=== PATIENT | male | born 1985 | race African-American/Black ===

== ENCOUNTER 2017-12-11 15:44 | Emergency (ER) | payer MEDICAID, SELFPAY ==
[2017-12-11 15:46] VITALS: BP 137/87; PULSE 75; RESP 18; TEMP 37.2; O2SAT 99; BMI 24.1
--- NOTE | 2017-12-11 15:57 | ED.VISSUMM ---
- ER Visit Summary Date of Service: 12/11/17 Chief Complaint: Nausea, vomiting History of Present Illness: The patient is a 32 M who is otherwise healthy presents to the emergency department nausea for the past 36 hours. He states that he has multiple sick contacts at home with similar symptoms. He states he would get some abdominal cramping almost feels as if he is hungry. He states that he will try and eat minimal vomit. He still able to drink fluids. He has had some cramping across his low back. He denies dysuria. Patient has had prior hernia surgery, but states he is moving his bowels without issue. He denies any fevers or chills. He has no history of Crohn's disease or ulcerative colitis. Physical Examination: Vital signs reviewed General: Well-nourished, well-developed Head: Normocephalic, atraumatic Eyes: Pupils equal and reactive, extraocular muscles intact Neck, supple, no lymphadenopathy Heart: Regular rate and rhythm Respiratory: No distress, clear bilaterally Abdomen: Soft, mildly tender in the midepigastric area without rebound or guarding, no hernia, nondistended, no peritoneal signs Back: Nontender Extremities: Nontender, no edema, no cords Skin: Normal color no rash Neuro: Alert and oriented, no focal or lateralizing deficits Test Results: [] Emergency Department Course and Treatment: The patient symptoms do seem consistent with gastritis. He did have one episode of loose diarrhea today. He has no significant focal tenderness. I am not concerned for obstruction. The patient is very forward that the only thing he wants some help the nausea single back to work. His vitals are normal. His exam is reassuring. He is given oral Zofran will be kept on this as an outpatient. I did spend time counseling him concerning symptoms and reasons to return. The patient be discharged home. Treatment Plan: [] Disposition: Discharge Impression: Nausea and vomiting This note was generated with [employer] dictation software. It may contain incorrect words, spelling, and punctuation that were not noted in review of the chart prior to signing ED Disposition - Plan for ED Patient: Chief Complaint: Nausea/Vomiting Instructions: ED Nausea Vomiting Prescriptions: Ondansetron [Zofran Odt] 4 mg PO Q8H PRN PRN #10 tab PRN Reason: Nausea Referrals: NOT,DEFINED [Primary Care Provider] -
[2017-12-11] MEDS: Ondansetron ODT 4 MG Tablet PO (16:23)
== END 2017-12-11 16:28 | disposition home or self-care (01) ==
LOC: ED 16:09
PROVIDERS: Emergency Provider Emergency Medicine
DX: R11.2 Nausea with vomiting, unspecified (principal)
CPT/HCPCS: 99283

== ENCOUNTER 2018-01-14 16:46 | Emergency (ER) | payer MEDICAID, SELFPAY ==
[2018-01-14 16:47] VITALS: BP 127/86; PULSE 80; RESP 16; TEMP 36.8; O2SAT 100; BMI 24.0
[2018-01-14 16:58] VITALS: O2SAT 97
--- NOTE | 2018-01-14 17:04 | ED.DCSUM_ITS ---
- ER Visit Summary Date of Service: 01/14/18 Chief Complaint: Cough History of Present Illness: The patient is a 32 M past medical history of hypoglycemia and psychiatric disorder. Patient states that he walks to work has been caught in the weather the last day or so it was cold and raining. 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 He states he now has a cough and mild shortness of breath. Denies any fever. No hemoptysis. Yellowish phlegm. Physical Examination: Well-appearing male. Vital signs are stable. He is afebrile. He does not look septic or toxic. He is in no distress. His pulse ox 90% on room air no signs of hypoxia. H EENT exam TMs normal bilaterally. Posterior pharynx moist and pink. No erythema or exudate. No trouble breathing or swallowing. No drooling. No exudate. No stridor. Neck nontender. No lymphadenopathy. Lungs dry cough. No rales, rhonchi or wheezing. Heart regular rhythm no murmur. Abdomen soft and nontender. Normal bowel sounds. No peritoneal signs. Patient moving all 4 extremities. They are neurovascularly intact. Nontender. No edema or cords. Neurologically is awake and alert with no focal motor deficits. Back exam is unremarkable. Test Results: None Emergency Department Course and Treatment: History and exam are consistent with a viral URI. Treatment Plan: Fluids and rest. Tylenol Motrin as needed. I explained the patient that antibiotics would be of no benefit. Disposition: Discharge Impression: Acute viral URI This note was generated with [employer] dictation software. It may contain incorrect words, spelling, and punctuation that were not noted in review of the chart prior to signing ED Disposition - Plan for ED Patient: Chief Complaint: Shortness of Breath Referrals: Care Physician,No Primary [Primary Care Provider] -
--- NOTE | 2018-01-14 17:04 | ED.DEP ---
ED Disposition - Plan for ED Patient: Disposition: Home or Assisted Living Chief Complaint: Shortness of Breath Instructions: ED URI Viral Referrals: Oleg Vasques MD [STAFF PHYSICIAN] - As Needed Additional Instructions: Plenty of fluids and rest. Tylenol and/or Motrin as needed for body aches. Follow-up if not improving or return if worse.
[2018-01-14 17:15] VITALS: BP 124/81; PULSE 70; RESP 18; O2SAT 98
--- NOTE | 2018-01-14 17:15 | EKG12_ITS ---
Test Reason : CP Blood Pressure : / mmHG Vent. Rate : 076 BPM Atrial Rate : 076 BPM P-R Int : 160 ms QRS Dur : 094 ms QT Int : 366 ms P-R-T Axes : 067 071 049 degrees QTc Int : 411 ms Normal sinus rhythm with sinus arrhythmia Septal ME, age undermined, cannot be excluded Confirmed by AKIRA HOOVER, SHANELLE ([id number]), science editor DOT HENSON ([id number]) on 01/16/2018 11:24:27 AM Referred By: PATRICE/KYLEIGH Confirmed By:SHANELLE CHAMPION MD
--- NOTE | 2018-01-14 17:16 | ED.RN ---
REVIEWED D/C INSTRUCTIONS, FOLLOW UP CARE, AND S/S THAT WOULD WARRANT A RETURN TO THE ED WITH PT. PT VERBALIZED AN UNDERSTANDING AND DENIES FURTHER QUESTIONS FOR THIS RN. PT SKIN WARM AND DRY, RESP EVEN AND UNLABORED, PT A&O X X3, NO DISTRESS NOTED. PT AMBULATED OUT OF ED, GAIT STEADY.
--- NOTE | 2018-01-15 12:10 | CM.ED ---
ED CALLBACK: Follow-up call placed to patient. Unable to hear patient when he answered due to poor connection. Upon calling back I received voicemail. Message left with return contact information should patient have any questions or needed assistance.
== END 2018-01-14 17:27 | disposition home or self-care (01) ==
LOC: ED 17:18
PROVIDERS: Emergency Provider Emergency Medicine
DX: J06.9 Acute upper respiratory infection, unspecified (principal); R06.02 Shortness of breath; Z72.0 Tobacco use
CPT/HCPCS: 93005; 99282; A4216

== ENCOUNTER 2018-04-05 14:32 | Emergency (ER) | payer MEDICAID, SELFPAY ==
[2018-04-05 14:32] VITALS: BP 119/88; PULSE 67; RESP 17; TEMP 36.7; O2SAT 100; BMI 23.1
--- NOTE | 2018-04-05 15:04 | ED.VISSUMM ---
- ER Visit Summary Date of Service: 04/05/18 Chief Complaint: Patient presents with bilateral low back pain that radiates into his buttocks when he hyperextends. He History of Present Illness: The patient is a 32 M who presents with bilateral low back pain that has been present for greater than a month. He states she has had problem for some time. 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 He denies paresthesia or anesthesia. He denies bowel or bladder dysfunction. He denies radicular pain. He states when he hyperextends his feet become numb. He denies foot drop. He denies weakness in his thigh muscles going up or down steps. He prefers to sit over standing. He does report sweats when the pain is severe and states since he has been working more he had a 2 pound weight loss over the past month. Patient denies ocular, visual auditory symptoms. He states the pain now radiates up to the back of his had any has a migraine. He has no history of migraines. He denies cardiac respiratory or GI symptoms. He denies urologic symptoms. Please read written note for complete detail Physical Examination: Vital signs noted. HEENT exam is unremarkable. Neck is supple. Patient initially set up and put his hands behind his head and flexed at the neck with no discomfort. When the nurse arrived in the room when he had to adjust himself in the bed he made grimacing facial expressions that he was in severe pain. Heart is regular without murmur, gallop or rub. S1 and S2 are normal. Lungs are clear to auscultation with good movement of air bilaterally. Abdomen is soft nontender bowel sounds are present normal. Patient has pain to palpation light touch right and left paralumbar region. Straight leg test is negative bilateral. He had pain to 15 degrees on the right without radiation and pain at 5 degrees on the left. Patella and ankle reflex are 2+. EHL is intact. There is no clonus or Babinski sign. There is no weakness of major muscle groups in his lower extremity. Is normal perianal sensation. Test Results: None Emergency Department Course and Treatment: Patient states he does not have a physician in this area. Demographics indicate he is from [place]. Treatment Plan: Oral pain medicine and prescription for Naprosyn Disposition: Disposition is discharged home with outpatient follow-up with Dr. Latanya Rodriguez since he has no physician Impression: Bilateral low back pain without sciatica This note was generated with [employer] dictation software. It may contain incorrect words, spelling, and punctuation that were not noted in review of the chart prior to signing ED Disposition - Plan for ED Patient: Disposition: Home or Assisted Living Chief Complaint: Back Instructions: ED Neck Back Pain General Prescriptions: Naproxen [Naprosyn] 500 mg PO BID #14 tablet Referrals: Care Physician,No Primary [Primary Care Provider] - Latanya Rodriguez DO [STAFF PHYSICIAN] - 3-5 Days if not improving Additional Instructions: Your prescription [facility] to [facility] your designated pharmacy of choice.
[2018-04-05] MEDS: HYDROcodone Bitartrate/Apap 5/325 Tablet PO (15:31)
[2018-04-05] MEDS: Naproxen 250 MG Tablet 500 MG PO (15:31)
== END 2018-04-05 15:39 | disposition home or self-care (01) ==
LOC: ED 15:17
PROVIDERS: Emergency Provider Emergency Medicine
DX: M54.5 Low back pain (principal)
CPT/HCPCS: 99283

== ENCOUNTER 2018-08-06 10:42 | Emergency (ER) | payer SELFPAY ==
[2018-08-06 10:43] VITALS: BP 137/77; PULSE 72; RESP 16; TEMP 36; O2SAT 98; BMI 22.6
--- NOTE | 2018-08-06 11:01 | RAD_ITS ---
STUDY: X-RAY - LUMBAR SPINE REASON FOR EXAM: Male, 33 years old. TECHNIQUE: view(s) of the lumbar spine were obtained. COMPARISON: None FINDINGS: There is straightening of the normal lumbar lordosis. There is no substantial scoliosis. There is a normal alignment of the vertebrae. Normal vertebral bodies and endplates. Normal disc space heights. The soft tissue structures are unremarkable. RAD/Lumbar Spine 2 or 3 Views IMPRESSION: Straightening of the normal lumbar lordosis. Electronically Signed: Luther Moser, at 12:22 EDT , Service support ,
[2018-08-06] MEDS: Ketorolac 15 MG/ML Vial IV (11:17)
--- NOTE | 2018-08-06 11:28 | ED.VIS.BACK ---
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 He presents with right lower back pain and right buttocks pain. He denies bowel bladder dysfunction. He denies saddle paresthesia anesthesia. He denies foot drop. He denies weakness in his thigh muscles going up or down steps. He does have a preference for of sitting versus standing. There is no history of trauma. He denies fever, chills night sweats. He denies weight loss or weight gain. He is not immune suppressed. The pain is not central back. Prior similar symptoms: Yes Recent Illness/Hospitalization: No - Past Medical History (1) Chronic back pain greater than 3 months duration Status: Chronic Past Medical History - Allergies and Home Meds Allergies/Adverse Reactions: Allergies amoxicillin Allergy (Verified 08/06/18 10:45) Swelling Primary Care Physician: Care Physician,No Primary [Primary Care Provider] - Prior records reviewed: No Surgical History: no surgical history Lives: Spouse/ Significant Other Smoking Status: Current every day smoker Alcohol: Rare Drugs: None Review of Systems General: Denies: Chills, Fever, Sweats Eyes: Denies: Visual changes - bilaterally, Diplopia ENT: Denies: Rhinorrhea, Sore throat Cardiovascular: Denies: Chest pain, Palpitations Respiratory: Denies: Dyspnea, Cough, Dyspnea on exertion Gastrointestinal: Denies: Abdominal pain, Nausea, Vomiting, Diarrhea, Melena, Hematochezia Genitourinary: Denies: Dysuria, Hematuria, Frequency Musculoskeletal: Reports: Back pain. Denies: Myalgias, Arthralgias, Neck pain, Swelling, Extremity Pain, -, - Skin: Denies: Rash, Wounds Neurological: Denies: Headache, Weakness, Numbness Hematologic: Denies: Easy bruising, Easy bleeding Allergy: Denies: Uticaria, Swelling of the mouth, Swelling of the tongue Physical Exam Vital Signs/Narrative: Vital Signs Temp Pulse Resp BP Pulse Ox 08/06/18 10:43 96.8 F L 72 16 137/77 H 98 Inital Vital Signs reviewed: Yes General: Well nourished, Well developed Head: Normocephalic, Atraumatic Eyes: Perrl, EOMI. Negative for: Pale conjunctiva, Scleral icterus ENT: Moist mucous membranes, No rhinorrhea Neck: Supple, No lymphadenopathy, No JVD Cardiovascular: Regular rate, Regular rhythm, No murmurs, Normal S1, Normal S2 Respiratory: No distress, CTA bilaterally Rectal: - - Normal perianal sensation Back: Normal Inspection, Paraspinal Tenderness, Negative SLR - Right, Negative SLR - Left. Negative for: Nontender, Surgical Scar, Well-Healed, Spinal tenderness, Positive SLR - Right, Positive SLR - Left Extremeties: Nontender, No edema, - - PM PT pulse are palpable and symmetric. There is no stigmata of peripheral arterial disease. Skin: Normal color, No rash. Negative for: Cyanosis, Jaundice, Rash Neuro: Alert, Oriented, Normal Strength, Normal Sensation, Normal DTR, Normal Gait, Normal Reflexes - Patella and ankle reflex are 1+ and symmetric., Normal Cerebellar, - - Gait observed with no foot drop. Able to walk on heels and toes. Able to do one leg squat right and left side. Reflexes: Right Patellar, Right Achilles, Left Patellar, Left Achilles. Negative for: Right Clonus, Right Babinski, Left Clonus, Left Babinski Psychological: Depressed Diagnostic/Tx/Re-eval X-Ray: LS SPine, Read by ED Physician, Normal Bony Alignment, Compression - Involving L1 that appears old. Otherwise no evidence of DJD, spurring, osteophytes, spondylolisthesis or disc space narrowing. - Medical Decision Making With history of chronic back pain will obtain x-ray to determine if there is evidence of arthritis spondyloptosis spondylolisthesis that may explain his chronic pain. Since there is no point tenderness and he has no red flags blood work was not obtained and based on history and physical MRI is not indicated. He was medicated with 15 mg of Toradol IV push. Patient has evidence of old L1 compression fraction approximately 510%. Will place on short course of opiate analgesia and follow-up with PCP and possible physical therapy. ED Disposition - Plan for ED Patient: Disposition: Home or Assisted Living Diagnosis: Nontraumatic compression fracture of L1 vertebra Instructions: ED Fx Comp Vertebral Prescriptions: Hydrocodone Bitart/Apap 5-325 [[place] 5MG-325MG] 1 tablet PO Q6H PRN PRN 3 Days #10 tablet PRN Reason: Pain Referrals: Marty Ma MD [STAFF PHYSICIAN] - Additional Instructions: Your prescription was electronically transmitted to [facility] on [address]. Since she denied a physician you were referred to Dr. Marty Ma.
[2018-08-06] MEDS: HYDROcodone Bitartrate/Apap 5/325 Tablet PO (12:05)
[2018-08-06 12:08] VITALS: PULSE 86; RESP 15; O2SAT 99
== END 2018-08-06 12:09 | disposition home or self-care (01) ==
PROVIDERS: Emergency Provider Emergency Medicine
DX: M48.56XA Collapsed vertebra, not elsewhere classified, lumbar region, initial encounter for fracture (principal); F17.200 Nicotine dependence, unspecified, uncomplicated
CPT/HCPCS: 72100; 96374; 99284; A4216

== ENCOUNTER 2018-12-20 13:42 | Emergency (ER) | payer SELFPAY ==
[2018-12-20 13:43] VITALS: BP 153/72; PULSE 91; RESP 18; TEMP 36.9; O2SAT 99; BMI 24.3
--- NOTE | 2018-12-20 14:02 | ED.VISSUMM ---
- ER Visit Summary Date of Service: 12/20/18 Chief Complaint: Pain History of Present Illness: The patient is a 33 M with left-sided dental pain for days. Patient is concerned he has an infection. He has a fractured tooth in the area. Denies any other associated symptoms or complaints. Physical Examination: Afebrile and vital signs unremarkable except for hypertension. Patient is holding his left face. No other pertinent findings on inspection. His HEENT exam shows a fractured left mandibular molar secondary to underlying decay. No sign of abscess. No trismus. No tongue elevation. Neck is unremarkable. Skin is normal. Test Results: None indicated Emergency Department Course and Treatment: Patient will be treated with naproxen and clindamycin. He was given 2 [place] here. We will not prescribe opioids for this. He should follow-up with dental for further care. Treatment Plan: As above Disposition: Discharged Impression: 1. Dental pain This note was generated with [employer] dictation software. It may contain incorrect words, spelling, and punctuation that were not noted in review of the chart prior to signing ED Disposition - Plan for ED Patient: Referrals: Care Physician,No Primary [Primary Care Provider] -
--- NOTE | 2018-12-20 14:03 | ED.DEP ---
ED Disposition - Plan for ED Patient: Instructions: Dental Pain Prescriptions: Clindamycin HCl [Cleocin] 300 mg PO Q6H #40 cap Prescription Printed Naproxen [Naprosyn] 500 mg PO BID #20 tab Prescription Printed
[2018-12-20] MEDS: Naproxen 500 MG Tablet PO (14:12)
[2018-12-20] MEDS: Clindamycin HCl 150 MG Capsule 450 MG PO (14:12)
[2018-12-20] MEDS: HYDROcodone Bitartrate/Apap 5/325 Tablet PO (14:12)
[2018-12-20 14:14] VITALS: RESP 18
== END 2018-12-20 14:15 | disposition home or self-care (01) ==
LOC: ED 14:01
PROVIDERS: Emergency Provider Emergency Medicine
DX: K08.89 Other specified disorders of teeth and supporting structures (principal); Z72.0 Tobacco use
CPT/HCPCS: 99283

== ENCOUNTER 2018-12-25 13:56 | Emergency (ER) | payer OTHER, SELFPAY ==
[2018-12-25 13:56] VITALS: BP 145/87; PULSE 88; RESP 16; TEMP 36.7; O2SAT 99; BMI 24.3
--- NOTE | 2018-12-25 14:42 | ED.DCSUM_ITS ---
- ER Visit Summary Date of Service: 12/25/18 Chief Complaint: Left thumb/hand laceration History of Present Illness: The patient is a 33 M who was cutting boxes when he cut his left hand. He cut over the thenar eminence. He believes a piece of muscle was hanging out of the wound. Denies any numbness or tingling to his thumb. His tetanus is up-to-date. Denies any other symptoms Physical Examination: Vital signs reviewed. Left hand exam reveals a 3.5 cm horizontal laceration on the left thenar eminence. He has good flexion of his thumb as well as extension. He can also counter post his thumb and touch his pinky finger. Test Results: None performed Emergency Department Course and Treatment: The patient has good range of motion of his thumb. I did a repair of the laceration with 8 sutures. He still had g ood full range of motion of the thumb and hand after laceration repair. He will have the sutures out in 7 to 10 days. Worker's Compensation forms will be filled out. Treatment Plan: [] Disposition: Discharge Impression: Left hand laceration, 3.5 cm Laceration repair This note was generated with [employer] dictation software. It may contain incorrect words, spelling, and punctuation that were not noted in review of the chart prior to signing ED Disposition - Plan for ED Patient: Referrals: Care Physician,No Primary [Primary Care Provider] -
--- NOTE | 2018-12-25 14:44 | ED.DEP ---
ED Disposition - Plan for ED Patient: Disposition: Home or Assisted Living Instructions: LACERATION, All Referrals: Care Physician,No Primary [Primary Care Provider] -
[2018-12-25] MEDS: Naproxen 500 MG Tablet PO (15:13)
== END 2018-12-25 15:14 | disposition home or self-care (01) ==
PROVIDERS: Emergency Provider Emergency Medicine
DX: S61.412A Laceration without foreign body of left hand, initial encounter (principal); Z72.0 Tobacco use; W26.0XXA Contact with knife, initial encounter; Y93.89 Activity, other specified; Y92.89 Other specified places as the place of occurrence of the external cause; Y99.0 Civilian activity done for income or pay
CPT/HCPCS: 12002; 99285

== ENCOUNTER 2019-02-05 10:10 | Emergency (ER) | payer OTHER, SELFPAY ==
[2019-02-05 10:11] VITALS: BP 115/75; PULSE 70; RESP 16; TEMP 36.7; O2SAT 99; BMI 23.7
--- NOTE | 2019-02-05 10:31 | ED.VISSUMM ---
- ER Visit Summary Date of Service: 02/05/19 Chief Complaint: Infection History of Present Illness: The patient is a 33 M who is worried about a staph infection to his left hand. His hand was caught at work with a box toe flanger stitchdowns earlier this month. It was sutured. He presents with pain and swelling to the laceration site. No drainage or bleeding. No redness or warmth. No fevers or systemic symptoms. Physical Examination: Patient has an old laceration site. Sutures are out. There is some tenderness to the radial side of the laceration. No active drainage, redness, or bleeding. Test Results: I suspect the patient may have a suture abscess or other collection. Patient declined I&D. He is requesting antibiotics. He was treated with clindamycin based on his allergies. Follow-up with [facility] care. Emergency Department Course and Treatment: As above Treatment Plan: As above Disposition: Discharge Impression: 1. Soft tissue infection left hand This note was generated with [employer] dictation software. It may contain incorrect words, spelling, and punctuation that were not noted in review of the chart prior to signing ED Disposition - Plan for ED Patient: Referrals: Care Physician,No Primary [Primary Care Provider] -
--- NOTE | 2019-02-05 10:34 | ED.DEP ---
ED Disposition - Plan for ED Patient: Instructions: WOUND CHECK, Lac F/U (Infected) Prescriptions: Clindamycin [Cleocin] 300 mg PO 4X/DAY #80 cap Prescription Printed Referrals: [facility] [GROUP OF PHYSICIANS] -
[2019-02-05 10:47] VITALS: TEMP 36.7
[2019-02-05] MEDS: Clindamycin HCl 150 MG Capsule 300 MG PO (11:09)
== END 2019-02-05 11:11 | disposition home or self-care (01) ==
LOC: ED 10:50
PROVIDERS: Emergency Provider Emergency Medicine
DX: L08.9 Local infection of the skin and subcutaneous tissue, unspecified (principal)
CPT/HCPCS: 99283

== ENCOUNTER 2019-05-30 08:46 | Emergency (ER) | payer SELFPAY ==
[2019-05-30 08:49] VITALS: BP 131/76; PULSE 83; RESP 17; TEMP 36.8; O2SAT 100; BMI 22.4
--- NOTE | 2019-05-30 09:00 | ED.DCSUM_ITS ---
- ER Visit Summary Date of Service: 05/30/19 Chief Complaint: Abdominal discomfort with nausea, vomiting and diarrhea. History of Present Illness: The patient is a 33 M with medical history of lactose intolerance and hypoglycemia. Prior appendectomy and hernia repair. Patient states for a long time many years he has lower abdominal discomfort. Recently has had nausea, vomiting and diarrhea. No dysuria. No fever. He is concerned that he has underlying medical problems that is never been diagnosed w ith or worked up for. He denies any hematemesis or melena. Physical Examination: Young male no acute distress vital signs stable afebrile. Does not look septic or toxic. Does not look dehydrated. H EENT exam unremarkable. Neck nontender no lymphadenopathy. Lungs clear to auscultation bilaterally. Heart regular rate and rhythm no murmur rate about 80. Abdomen is soft. Nondistended. Normal bowel sounds. No peritoneal signs. No obvious hernia or masses no signs of obstruction. Both the right upper and right lower quadrants are unremarkable. Patient is moving all 4 extremities. Neurovascular intact. Normal strength and sensation. No edema. Back is nontender. Neurologically is awake alert with no focal motor deficits. Test Results: Labs were basically normal including CBC with a white count of 5. Hemoglobin 16. Chemistries normal normal creatinine and gap. Liver enzymes and lipase both normal. UA normal. I discussed all test results with the patient. Emergency Department Course and Treatment: Treated with IV fluids and Zofran. Screening labs being obtained. Exam currently is benign. Treatment Plan: On repeat exam at 10:35 AM he is doing well. His abdomen is benign. We went over all test results and follow-up. Outpatient follow-up. Zofran for nausea as needed. Disposition: discharge Impression: Acute nausea, vomiting and diarrhea Abdominal pain of uncertain etiology. This note was generated with [employer] dictation software. It may contain incorrect words, spelling, and punctuation that were not noted in review of the chart prior to signing ED Disposition - Plan for ED Patient: Referrals: Care Physician,No Primary [Primary Care Provider] -
[2019-05-30 09:29] VITALS: BP 108/65; PULSE 65; O2SAT 100
[2019-05-30] MEDS: 0.9% Normal Saline 1,000 ML 1000 ML IV (09:48)
[2019-05-30] MEDS: Ondansetron 4 MG/2 ML Vial IV (09:48)
[2019-05-30 09:54] VITALS: BP 108/65; PULSE 65; RESP 17; TEMP 36.8; O2SAT 100
[2019-05-30 09:57] LABS: Red Blood Cells-Urine 0 SEEN /hpf (0-5); White Blood Cells 0 SEEN /hpf (0-5)
[2019-05-30 10:00] LABS: Absolute Lymphocyte Count 2.06 X10^3/uL (0.83-4.51); Absolute Neutrophil Count 2.4 X10^3/uL (2.0-7.7); Basophil# 0.04 X10^3/uL; Basophil% 0.8 % (0-1); Eosinophil# 0.35 X10^3/uL; Eosinophils% 6.7 % (0-5); Hematocrit 47.8 % (40-54); Hemoglobin 16.1 g/dL (13.0-16.5); Lymphocyte # 2.06 X10^3/ul (4.0); Lymphocyte % 39.2 % (19-41); Mean Corp Hgb Conc 33.7 g/dL (32-36); Mean Corpuscular Hgb 32.1 pg (27.0-32.0); Mean Corpuscular Volume 95.2 fL (80-94); Mean Platelet Vol. 8.7 fl (6.2-12.0); Monocyte# 0.39 X10^3/uL; Monocyte% 7.4 % (0-10); NRBC Flagged by Analyzer 0 % (0-5); Neutrophil # 2.41 X10^3/uL (2.7-7.7); Neutrophil % 45.7 % (47-70); Platelet Count 290 K/mm3 (150-450); RBC Distribution Width CV 12.8 % (11.6-14.6); RBC Distribution Width SD 45.1 fl (35.1-43.9); Red Blood Count 5.02 M/mm3 (4.6-6.2); White Blood Count 5.3 K/mm3 (4.4-11.0)
[2019-05-30 10:00] LABS: Color, Urine Yellow (Yellow); Glucose, Dipstick Normal (Normal); Ketone-Dipstick Negative (Negative); Leukocyte Esterase-Dipstick 25 /ul (Negative); Nitrite-Dipstick Negative (Negative); Occult Blood-Urine Negative /ul (Negative); Protein-Dipstick Negative (Negative); Specific Gravity, Urine 1.015 (1.002-1.030); Urine Bilirubin Dipstick Negative (Negative); Urine Clarity Sl. Cloudy (Clear); Urine Urobilinogen Normal (Normal); Urine pH 6.5 (5.0 - 8.0)
[2019-05-30 10:05] LABS: Bacteria RARE /hpf (None Seen); Mucous, Urine RARE /hpf (<or=2+); Squamous Epithelial Cells - UA 0-5 SEEN /hpf (0-5)
[2019-05-30 10:15] LABS: AST(SGOT) 16 U/L (15-37); Alanine Aminotransfer ALT/SGPT 24 U/L (16-61); Albumin, Serum 3.9 g/dL (3.2-5.0); Alkaline Phosphatase 36 U/L (45-117); Anion Gap 1 (5-15); BUN 13 mg/dL (7-18); BUN/Creat Ratio 12.5 RATIO (10-20); Bilirubin, Direct 0.13 mg/dL (0.00-0.30); Calcium,Total 8.8 mg/dL (8.5-10.1); Chloride 107 mmol/L (98-107); Creatinine, Serum 1.04 mg/dL (0.70-1.30); EST Glomerular Filtration Rate 87 mL/min (>60); Est Glom Filt Rate - Afr Amer 105 mL/min (>60); Estimated Creatinine Clearance 113.46 ml/min; Globulin 3.6 g/dL (2.2-4.2); Glucose 90 mg/dL (74-106); Lipase 76 U/L (73-393); Potassium 4.2 mmol/L (3.5-5.1); Protein, Total 7.5 g/dL (6.4-8.2); Sodium Level 140 mmol/L (136-145)
--- NOTE | 2019-05-30 10:38 | ED.DEP ---
ED Disposition - Plan for ED Patient: Disposition: Home or Assisted Living Instructions: ABDOMINAL PAIN, Unkown Cause, (Male) Prescriptions: Ondansetron [Zofran Odt] 4 mg PO Q8H PRN PRN 5 Days #10 tab PRN Reason: Nausea Prescription Printed Referrals: Brenda De Los Santos [NON-STAFF] - 1 Week if not improving Wade Mart [[facility]] - 1 Week if not improving Additional Instructions: Follow-up with either colten Nassar him in clinic or if you have an assigned physician through Medicaid. Zofran as needed for nausea.
[2019-05-30 10:51] VITALS: BP 114/77; PULSE 60; RESP 18; O2SAT 100
--- NOTE | 2019-05-30 10:52 | ED.RN ---
REVIEWED D/C INSTRUCTIONS, FOLLOW UP CARE, PRESCRIPTION, AND S/S THAT WOULD WARRANT A RETURN TO THE ED WITH PT. PT VERBALIZED AN UNDERSTANDING AND DENIES FURTHER QUESTIONS FOR THIS RN. PT SKIN WARM/DRY, RESP EVEN AND UNLABORED, PT A&O X 3, NO DISTRESS NOTED. PT AMBULATED OUT OF ED, GAIT STEADY.
== END 2019-05-30 10:53 | disposition home or self-care (01) ==
PROVIDERS: Emergency Provider Emergency Medicine
DX: R11.2 Nausea with vomiting, unspecified (principal); R19.7 Diarrhea, unspecified; R10.30 Lower abdominal pain, unspecified
CPT/HCPCS: 80048; 80076; 81001; 83690; 85025; 96361; 96374; 99283; J7030; J2405

== ENCOUNTER 2023-02-27 16:25 | Emergency (ER) | payer MEDICAID, SELFPAY ==
[2023-02-27 16:27] VITALS: BP 120/77; PULSE 71; RESP 16; TEMP 35.8; O2SAT 98; BMI 23.6
--- NOTE | 2023-02-27 18:04 | EX.ED.GENINJ ---
HPI <NOEL Singh - Last Filed: 02/27/23 18:56> History of Present Illness Chief Complaint: Laceration Narrative Narrative: Presenting today with a laceration to his right thumb that he got this afternoon while helping a friend renovate his house. 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 He is not on any blood thinners. Tetanus is up-to-date. PFSH <NOEL Singh - Last Filed: 02/27/23 18:56> PFSH Allergy/AdvReac Type Severity Reaction Status Date / Time amoxicillin Allergy Swelling Verified 02/27/23 16:27 Social History Smoking Status: Current every day smoker tobacco type: cigarettes ROS <NOEL Singh - Last Filed: 02/27/23 18:56> ROS ED Constitutional Constitutional ED: Denies chills or fever(s) Cardiovascular Cardiovascular: Denies chest pain Respiratory/Chest Respiratory/Chest: Denies cough or dyspnea Gastrointestinal Gastrointestinal: Denies abdominal pain, nausea or vomiting Musculoskeletal Musculoskeletal: Denies arthralgias or myalgias Integumentary Reports laceration Neurologic Neurologic: Denies paresthesias or weakness EXAM <NOEL Singh - Last Filed: 02/27/23 18:56> Physical Exam Const Vital Signs: 02/27/23 16:27 Temperature 96.5 F L Temperature Source Temporal Pulse Rate 71 Respiratory Rate 16 Blood Pressure 120/77 Blood Pressure Mean 91 Pulse Ox 98 Oxygen Delivery Method Room Air Positive well nourished, well developed and no apparent distress General Appearance ED: well developed HEENT Reports normocephalic and head/scalp atraumatic Mouth ED: Yes moist mucous membranes normal Eyes PERRL and EOMs intact bilaterally Neck full ROM and supple Chest Wall inspection of chest normal Resp normal respiratory effort and clear to auscultation bilaterally Cardio regular rate and regular rhythm GI soft to palpation, non-tender, non-distended and no masses Back/Spine normal ROM and normal to inspection Extremity normal to inspection and full ROM Extremity Narrative: Small 0.5 cm flap laceration to the distal aspect of the right thumb. Nailbed is not involved. Radial pulse 2+, good capillary refill, sensation intact. Neuro oriented x3, CN's II-XII intact bilaterally, moves all extremities, no focal motor deficits and no sensory deficits noted Sensorium / Orientation: awake and alert Psych mental status grossly normal and thought process normal <Edmond Perez MD - Last Filed: 02/27/23 22:43> Physical Exam Const Vital Signs: 02/27/23 16:27 Temperature 96.5 F L Temperature Source Temporal Pulse Rate 71 Respiratory Rate 16 Blood Pressure 120/77 Blood Pressure Mean 91 Pulse Ox 98 Oxygen Delivery Method Room Air PROC <NOEL Singh - Last Filed: 02/27/23 18:56> Procedures Lacerations laceration: Length: 0.2 in Depth: Skin Shape: Flap Prep: Chlorhexadine Laceration repair: Dermabond, Irrigated and Wound explored MDM <NOEL Singh - Last Filed: 02/27/23 18:56> [facility] Narrative Medical decision making narrative: Patient presenting due to a laceration to his thumb that he got on a piece of aluminum this afternoon. He is well-appearing and in no acute distress. Tetanus is up-to-date. He is not on any blood thinners. Laceration was soaked in soapy water and then extensively cleaned and irrigated. Sutures were not needed for this as the laceration was superficial and there was no active bleeding. Small amount of skin glue was applied and wound was approximated well. Patient was educated on signs of infection to look out for and reasons to return. He will be discharged home in stable condition and is comfortable with plan. <Edmond Perez MD - Last Filed: 02/27/23 22:43> [facility] Narrative Medical decision making narrative: Patient presenting due to a laceration to his thumb that he got on a piece of aluminum this afternoon. He is well-appearing and in no acute distress. Tetanus is up-to-date. He is not on any blood thinners. Laceration was soaked in soapy water and then extensively cleaned and irrigated. Sutures were not needed for this as the laceration was superficial and there was no active bleeding. Small amount of skin glue was applied and wound was approximated well. Patient was educated on signs of infection to look out for and reasons to return. He will be discharged home in stable condition and is comfortable with plan. Dr. Perez: I have personally performed a face to face assessment of the patient and have reviewed the ORA Note. I performed a substantive portion of the visit including all aspects of the following. My coronado findings include: History is small superficial laceration versus avulsion to right thumb. Exam is afebrile. Vital signs noted. No active bleeding superficial laceration to right thumb pad. Medical Decision Making: It was not felt this is amenable to suturing. Cleanse, small amount of skin adhesive, informed of risk of infection and scarring and acknowledges an understanding. Discharge. Other additions or changes: [None] Discharge Plan Triage Chief Complaint: Laceration ED Midlevel Provider: hSerice Wall ED Provider: Edmond Perez Dx/Rx/DC Orders Clinical Impression: Laceration Instructions: ED Laceration: Skin Adhesive Primary Care Provider: Care Physician,No Primary Referrals: Care Physician,No Primary [Primary Care Provider] - Activity Restrictions/Additional Instructions: Return or follow-up with PCP for any signs of infection. Disposition Disposition: Home, Self Care Discharge Date/Time: 02/27/23 18:39
== END 2023-02-27 18:39 | disposition home or self-care (01) ==
LOC: ED 18:34
PROVIDERS: Emergency Provider Emergency Medicine; Visit Provider Emergency Medicine
DX: S61.011A Laceration without foreign body of right thumb without damage to nail, initial encounter (principal); F17.210 Nicotine dependence, cigarettes, uncomplicated; W26.8XXA Contact with other sharp object(s), not elsewhere classified, initial encounter
CPT/HCPCS: 99282

== ENCOUNTER 2023-04-26 14:52 | Emergency (ER) | payer MEDICAID, SELFPAY ==
[2023-04-26 14:53] VITALS: BP 131/82; PULSE 90; RESP 18; TEMP 36.6; O2SAT 99; BMI 22.6
--- NOTE | 2023-04-26 16:32 | CT_ITS ---
STUDY: CT CHEST, ABDOMEN T PELVIS WITH CONTRAST REASON FOR EXAM: Male, 37 years old. fall -- Right scapula, lower lumbar, sacral injury RADIATION DOSAGE (If Supplied By Facility): CTDIvol = ( 12.67 ) mGy, DLP = ( 871.01 ) mGycm TECHNIQUE: Transaxial imaging was performed following intravenous administration of IV 100mL Isovue-300. Individualized dose optimization techniques were used for this CT. COMPARISON: FINDINGS: CHEST The lungs are normal. There is no demonstrated pleural abnormality. Normal heart and pericardium. Normal mediastinum. Normal hilar regions. Normal unenhanced pulmonary arteries. Normal aorta arch and descending thoracic aorta. Normal osseous structures. ABDOMEN Normal liver. Normal gallbladder and extrahepatic biliary system. Normal spleen. Normal pancreas. Normal bilateral adrenal glands. Bilateral renal cysts. Possible punctate nonobstructing renal calculi bilaterally. Normal visualized stomach. Normal small intestine. Normal colon. The appendix is not visualized. Normal abdominal aorta. Normal inferior vena cava. Normal retroperitoneum. Normal abdominal wall. Normal osseous structures. PELVIS Normal urinary bladder. Normal visualized small intestine. Normal visualized colon. There is no pelvic fluid. There is no pelvic lymphadenopathy or mass lesion. Normal visualized pelvic arteries. Normal abdominal wall. Normal osseous structures. CT/CT Chest, Abd, Pel w/Contrast IMPRESSION: Questionable nonobstructive bilateral renal calculi.. Electronically Signed: Brendan Dominique DO at 18:02 EST ,
--- NOTE | 2023-04-26 16:35 | ED.VIS.FALL ---
HPI HPI - Fall History of Present Illness Chief Complaint: Fall Informant: patient Narrative Narrative: Mechanical fall prior to arrival going down wooden steps in the back. He hit the steps on his back and his right shoulder blade. No head injuries. He states when he urinated dark color stating look like blood. He does not take any blood thinners. Possible allergies to amoxicillin. Denies IV dye allergy. Prior similar symptoms: No PFSH PFSH Allergy/AdvReac Type Severity Reaction Status Date / Time amoxicillin Allergy Swelling Verified 04/26/23 14:53 Social History Smoking Status: Current every day smoker tobacco type: cigarettes ROS ROS ED Constitutional Constitutional ED: Denies chills, fever(s) or sweats Eyes Eyes: Denies change in vision ENT ENT ED: Denies dysphagia or sore throat Cardiovascular Cardiovascular: Denies chest pain, leg edema, palpitations or racing heartbeat Respiratory/Chest Respiratory/Chest: Denies cough, dyspnea or dyspnea on exertion Gastrointestinal Gastrointestinal: Denies abdominal pain, diarrhea, nausea or vomiting Genitourinary Genitourinary ED: Denies dysuria, hematuria or urinary frequency Musculoskeletal Musculoskeletal: Reports back pain; Denies extremity pain or neck pain Integumentary Denies rash or wounds Neurologic Neurologic: Denies headache(s), paresthesias or weakness EXAM Physical Exam Const Vital Signs: 04/26/23 14:53 04/26/23 16:32 Temperature 97.8 F Temperature Source Temporal Pulse Rate 90 Respiratory Rate 18 Respiratory Effort Normal Non-Labored Blood Pressure 131/82 H Blood Pressure Mean 98 Pulse Ox 99 Oxygen Delivery Method Room Air Room Air Positive well nourished and well developed Constitutional Narrative: GCS 15, uncomfortable laying on side General Appearance ED: well developed HEENT Reports moist mucous membranes normocephalic and atraumatic Eyes EOMs intact bilaterally and conjunctivae normal General Eye ED: Yes normal appearance of both eyes Neck full ROM, no lymphadenopathy and supple Neck Narrative: No midline tenderness no step-offs. General: Negative for tenderness Chest Wall inspection of chest normal and palpation of chest normal Chest: Negative for tenderness Resp normal respiratory effort and normal air movement Resp Narrative: Symmetric breath sounds Effort and Inspection: symmetric chest movement; Negative for respiratory distress Cardio regular rate, regular rhythm and no murmurs Peripheral Pulses: pulses 2+ throughout GI normal to inspection, nondistended, normoactive bowel sounds and non-tender Palpation: Negative for guarding or rebound tenderness present Back/Spine no CVA tenderness Back/Spine Narrative: No midline thoracic tenderness. There is moderate tenderness to the right scapula. Skin intact no ecchymosis. There is lower lumbar tenderness with no step-offs. Sacral tenderness. Skin intact. No pain over CVA area. No ecchymosis. Extremity normal to inspection General Extremety ED: Negative for edema or tenderness General Extremity: Negative for edema Neuro oriented x3, CN's II-XII intact bilaterally and no sensory deficits noted Sensorium / Orientation: awake and alert Skin no rashes or lesions noted and no wounds MDM MDM MDM Narrative Medical decision making narrative: Interventions / MDM: Differential diagnosis: Contusion Diagnosis considered but do not suspect: Fractures, retroperitoneal injury however CTs are negative My EKG interpretation: N/A Imaging independently reviewed and interpreted by myself: CT chest abdomen pelvis IV contrast: No bony fractures, no organ injury. This also read by radiology. External documents reviewed: N/A Test considered but not ordered:N/A ED course: Patient mechanical fall pain right scapula lower lumbar and sacrum. However reports concerns for blood in his urine. IV established for trauma scan chest abdomen pelvis for further evaluation. Results are negative labs are stable he did not provide a urine sample. However discussed no gross injuries noted of the kidney. Treatment would be symptomatic. He has Motrin at home for which she will take 600 mg every 6 hours for the next 2 days and as needed. Outpatient follow-up given. Re-evaluation: stable Disposition discussed with patient/family/significant other: Patient Case discussed with consulting clinician: N/A This note was generated with [employer] dictation software. It may contain incorrect words, spelling, and punctuation that were not noted in checking the note before signing. Lab Data Attestation: I reviewed the patient's lab results. Labs: Laboratory Results - last 24 hr 04/26/23 17:00 WBC 4.6 RBC 4.65 Hgb 14.6 Hct 43.5 MCV 93.5 MCH 31.4 MCHC 33.6 RDW Std Deviation 44.4 H RDW Coeff of Davide 13.1 Plt Count 295 MPV 9.1 Immature Gran % (Auto) 0.200 Neut % (Auto) 33.0 L Lymph % (Auto) 53.7 H Seward % (Auto) 9.6 Eos % (Auto) 2.6 Baso % (Auto) 0.9 Absolute Neuts (auto) 1.5 L Absolute Lymphs (auto) 2.45 Nucleated RBC % 0 PT 13.5 INR 1.0 APTT 28.3 Sodium 141 Potassium 4.9 Chloride 109 H Carbon Dioxide 30.0 Anion Gap 2 L BUN 19 H Creatinine 1.04 Estim Creat Clear Calc 110.00 Est GFR (MDRD) Af Amer 103 Est GFR (MDRD) Non-Af 85 BUN/Creatinine Ratio 18.3 Glucose 91 Calcium 9.4 Radiography Diagnostic Testing: Clinical Impression(s) from Imaging Studies Chest/Abdomen/Pelvis CT 04/26/23 16:32 IMPRESSION: Questionable nonobstructive bilateral renal calculi.. Electronically Signed: Brendan Dominique DO at 18:02 EST Reading Location ID and State: [address] [place] [address] Tel [phone], Service support , Discharge Plan Triage Chief Complaint: Fall ED Provider: Damian Burns Dx/Rx/DC Orders Clinical Impression: Back contusion, Fall (on) (from) other stairs and steps, initial encounter Instructions: ED Back Contusion Stand Alone Forms: ED Work / School Excuse Primary Care Provider: Care Physician,No Primary Referrals: Brenda De Los Santos [Non-Staff] - 1 Week Care Physician,No Primary [Primary Care Provider] - Activity Restrictions/Additional Instructions: CT chest abdomen pelvis IV contrast negative for fracture or injuries of any organs. Use ibuprofen 600 mg every 6 hours for the next 2 days then as needed. Disposition Disposition: Home, Self Care Discharge Date/Time: 04/26/23 18:55
--- OUTSIDE RECORDS SUMMARY | 2023-04-26 16:55 | XMS RPT_ITS | CCD ---
Author Name Unknown Address [address] [facility] [address] [place] [address] Organization [facility] Care Team Providers Care Quality Facilitator Name Role Phone PHYSICIAN, NONE Unavailable Unavailable BRANDON FISH Unavailable Unavailable [facility] Unavailable Unavai lable PHYSICIAN, NONE Unavailable Unavailable KATARZYNA FISHMAN Unavailable Unavailable [facility] Unavailable Unavai lable Results Test Name Value Interpretation Reference Range Facil ity Encounters Encounter Date Encounter Type Care Provider Facility Start: 07-19-2017 End: 07-19-2017 Emergency department patient visit NONE PHYSICIAN Facil ity:A Start: 03-16-2017 End: 03-16-2017 Emergency department patient visit NONE PHYSICIAN Facil ity:A Payers Date Payer Category Payer Self-pay Summary Purpose Family History No Family History Records Found Advance Directives No Advanced Directives Records Found Additional Source Comments (unrecognized sect ion and content) No Status Records Found INFORMATION SOURCE (unrecogn ized section and content) FOR RECORDS PERTAINING TO PATIENTS WHO ARE OR HAVE BEEN ENROLLED IN A CHEMICAL DEPENDENCY/SUBSTANCEABUSE PROGRAM, SOME INFORMATION MAY BE OMITTED. This clinical summary was aggregated from multiple sources. Caution should be exercised in using it in the provision of clinical care. This summary normalizes information from multiple sources, and as a consequence, information in this document may materially change the coding, format and clinical context of patient data. In addition, data may be omitted in some cases. CLINICAL DECISIONS SHOULD BE BASED ON THE PRIMARY CLINICAL RECORDS. [employer] provides no warranty or guarantee of the accuracy or completeness of information in this document.
[2023-04-26] MEDS: fentaNYL 100 MCG/2 ML Ampul 50 MCG IV (16:56)
[2023-04-26] MEDS: 0.9% Normal Saline (500mL Bag) 500 ML 1000 ML IV (16:58)
[2023-04-26 17:09] LABS: Absolute Lymphocyte Count 2.45 X10^3/uL (0.83-4.51); Absolute Neutrophil Count 1.5 X10^3/uL (2.0-7.7); Basophil# 0.04 X10^3/uL; Basophil% 0.9 % (0-1); Eosinophil# 0.12 X10^3/uL; Eosinophils% 2.6 % (0-5); Hematocrit 43.5 % (40-54); Hemoglobin 14.6 g/dL (13.0-16.5); Lymphocyte # 2.45 X10^3/ul (0.83-4.51); Lymphocyte % 53.7 % (19-41); Mean Corp Hgb Conc 33.6 g/dL (32-36); Mean Corpuscular Hgb 31.4 pg (27.0-32.0); Mean Corpuscular Volume 93.5 fL (80-94); Mean Platelet Vol. 9.1 fl (6.2-12.0); Monocyte# 0.44 X10^3/uL; Monocyte% 9.6 % (0-10); NRBC Flagged by Analyzer 0 % (0-5); Platelet Count 295 K/mm3 (150-450); RBC Distribution Width CV 13.1 % (11.6-14.6); RBC Distribution Width SD 44.4 fl (35.1-43.9); Red Blood Count 4.65 M/mm3 (4.6-6.2); White Blood Count 4.6 K/mm3 (4.4-11.0)
[2023-04-26 17:17] LABS: Prothrombin Time (Protime)PT. 13.5 SECONDS (11.7-14.9)
[2023-04-26 17:18] LABS: Partial Thromboplast Time 28.3 Seconds (24.1-36.2)
[2023-04-26 17:22] LABS: Anion Gap 2 (5-15); BUN 19 mg/dL (7-18); BUN/Creat Ratio 18.3 RATIO (10-20); Calcium,Total 9.4 mg/dL (8.5-10.1); Chloride 109 mmol/L (98-107); Creatinine, Serum 1.04 mg/dL (0.70-1.30); EST Glomerular Filtration Rate 85 mL/min (>60); Est Glom Filt Rate - Afr Amer 103 mL/min (>60); Glucose 91 mg/dL (74-106); Potassium 4.9 mmol/L (3.5-5.1); Sodium Level 141 mmol/L (136-145)
== END 2023-04-26 18:55 | disposition home or self-care (01) ==
PROVIDERS: Emergency Provider Emergency Medicine; Visit Provider Emergency Medicine
DX: S20.229A Contusion of unspecified back wall of thorax, initial encounter (principal); F17.210 Nicotine dependence, cigarettes, uncomplicated; W10.9XXA Fall (on) (from) unspecified stairs and steps, initial encounter
CPT/HCPCS: 71260; 74177; 80048; 85025; 85610; 85730; 96374; 99282; J7030; Q9967